=== PATIENT | male | born 1975 | race Caucasian/White ===

== ENCOUNTER 2017-03-11 06:08 | Emergency (ER) | payer OTHER ==
[~2017-03-11] VITALS: Ht 198.1 cm; Wt 84.8 kg
[2017-03-11] MEDS ORDERED: Veetids 500500 MG PO (06:27)
[2017-03-11] MEDS ORDERED: Naprosyn500 MG PO (06:27)
== END 2017-03-11 06:35 | disposition home or self-care (01) ==
LOC: ER 06:08
DX: K02.9 Dental caries, unspecified (principal); Z79.2 Long term (current) use of antibiotics; Z79.899 Other long term (current) drug therapy
CPT/HCPCS: 99283

== ENCOUNTER 2017-07-23 04:12 | Emergency (ER) | payer OTHER ==
[~2017-07-23] VITALS: Ht 198.1 cm; Wt 81.2 kg
[~2017-07-23 04:12] MED LIST: Naprosyn500 MG PO; Veetids 500500 MG PO
[2017-07-23] MEDS ORDERED: IBUP800 PO (05:07)
[2017-07-23] MEDS ORDERED: Veetids 500500 MG PO (05:07)
== END 2017-07-23 05:13 | disposition home or self-care (01) ==
LOC: ER 04:12
DX: K02.9 Dental caries, unspecified (principal); F17.210 Nicotine dependence, cigarettes, uncomplicated
CPT/HCPCS: 99283